=== PATIENT | female | born 1965 | race African-American/Black ===

== ENCOUNTER 2017-12-29 02:31 | Emergency (ER) | payer OTHER ==
[~2017-12-29] VITALS: Ht 160 cm; Wt 81.6 kg
[~2017-12-29 02:31] MED LIST: ASPIRIN81 M4 PO; CLARITIN 24HR10 MG PO; DAILY MULTIPLE1 EACH PO; FLUTICASONE PRO16 GM NASB; JUNEL FE 1/20 21 TAB PO; NORTRIPTYLINE H10 M2 PO; NORVASC5 M1 PO; OMEGA 3 1,0001 EACH PO; OMEPRAZOLE40 M1 PO; REGLAN10 MG PO; SLOW FE160 MG PO; VITAMIN D2000 UNI1 PO; [UNRECOGNIZED DRUG - OTHER] NASB
--- NOTE | 2017-12-29 03:22 | ED CARDIAC/CP/PALPITATIONS ---
See Addendum History of Present Illness General Chief Complaint: Chest Pain Stated Complaint: CHEST PAIN/ LEFT ARM PAIN X 1 DAY Source: patient, old records Exam Limitations: no limitations Vital Signs & Intake/Output Vital Signs & Intake/Output Vital Signs Date Time Temp Pulse Resp B/P B/P Pulse O2 O2 Flow FiO2 Mean Ox Delivery Rate 12/29 0409 70 18 142/75 99 Room Air 12/29 0254 97.6 95 16 158/81 98 Room Air Room Air Allergies Coded Allergies: No Known Allergies (12/29/17) Reconcile Medications Amlodipine Besylate (Norvasc) 5 MG TABLET 1 TAB PO DAILY HEART (Reported) Aspirin (Aspirin*) 81 MG TAB.CHEW 1 TAB PO DAILY HEART HEALTH (Reported) Cholecalciferol (Vitamin D3) (Vitamin D) 2,000 UNIT TABLET 1 TAB PO DAILY VITAMIN SUPPORT (Reported) Fluticasone Propionate 50 MCG/ACTUATION SPRAY.SUSP 2 SPRAY NASB DAILY PRN ALLERGIES (Reported) Multivitamin (Daily Multiple Vitamin) 1 EACH TABLET 1 TAB PO DAILY VITAMIN SUPPORT (Reported) Nortriptyline HCl 10 MG CAPSULE 3 CAP PO QPM PAIN (Reported) [place]-3 Fatty Acids/Fish Oil ([place] 3 1,000 MG Softgel) 300 MG-1,000 MG CAPSULE 1 CAP PO BID SUPPLEMENT (Reported) Omeprazole 40 MG CAPSULE.DR 1 CAP PO DAILY ACID REFLUX (Reported) Core Measure Meds Pre-Hospital aspirin Triage Note: PT TO TRIAGE FOR MID STERNAL CHEST PAIN THAT RADIATES TO HER LEFT ARM. PT HAS SITTING IN A CAR WAS PAIN STARTED, DENIES SOB. DOES NOT APPEAR IN DISTRESS. Triage Nurses Notes Reviewed? yes Onset: Evening Duration: hour(s):, constant, continues in ED Timing: recent history Quality/Severity: mild, moderate, pressure Location: substernal Radiation: shoulders, arms Activities at Onset: rest Prior Chest Pain/Card Workup: no prior chest pain Nitro Today/Relief: no nitro taken today Aspirin Today: 325 mg x 1, provided by ED LMP (ages 10-50): post menopausal : No Patient currently breastfeeds: No HPI: 8 hours prior to admission patient complains of substernal chest pain described as mild to moderate pressure radiating to her left shoulder constant. She woke prior to admission with continued pain as described with radiation further down her left arm. She denies fever chills nausea vomiting diarrhea abdominal pain shortness of breath headache dysuria rash bleeding. Past History Travel History Traveled to [place] past 21 day No Medical History Any Pertinent Medical History? 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 Yes Review of Systems Review of Systems Constitutional: Reports: no symptoms. EENTM: Reports: no symptoms. Respiratory: Reports: no symptoms. Cardiovascular: Reports: see HPI, chest pain. GI: Reports: no symptoms. Genitourinary: Reports: no symptoms. Musculoskeletal: Reports: no symptoms. Skin: Reports: no symptoms. Neurological/Psychological: Reports: no symptoms. Hematologic/Endocrine: Reports: no symptoms. Immunologic/Allergic: Reports: no symptoms. All Other Systems: Reviewed and Negative Physical Exam Physical Exam General Appearance: well developed/nourished, alert, awake, anxious, comfortable , obese Head: atraumatic, normal appearance Eyes: Bilateral: normal appearance, PERRL, EOMI. Ears, Nose, Throat: normal pharynx, normal ENT inspection, hearing grossly normal Neck: normal inspection, supple, full range of motion Respiratory: normal breath sounds, chest non-tender, no respiratory distress, quiet respiration, lungs clear Cardiovascular: regular rate/rhythm, normal peripheral pulses, norml femoral pulses equa Peripheral Pulses: 4+ carotid (R), 4+ carotid (L) Gastrointestinal: normal bowel sounds, soft, non-tender, no organomegaly Back: normal inspection, normal range of motion Extremities: normal inspection, normal capillary refill, normal range of motion, no edema Neurologic/Psych: no motor/sensory deficits, awake, alert, oriented x 3, normal gait, normal mood/affect, 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 Skin: intact, normal color, warm/dry Lymphatic: adenopathy Core Measures ACS in differential dx? Yes CVA/TIA Diagnosis No Sepsis Present: No Sepsis Focused Exam Completed? No Progress Differential Diagnosis: AMI, atrial fibrillation, costochondritis, hyperkalemia, hypovolemia, hyperthyroid, musculoskeletal pain, pneumonia Plan of Care: Orders Procedure Date/time Status TROPONIN LEVEL 12/29 0650 Active TSH REFLEX 12/29 032 Complete TROPONIN LEVEL 12/29 032 Complete MAGNESIUM 12/29 032 Complete COMPREHENSIVE METABOLIC PANEL 12/29 032 Complete CBC WITHOUT DIFFERENTIAL 12/30 319 Complete URINALYSIS 12/29 024 Complete EKG 12/29 0232 Active Current Medications Sig/Wendy Start time Last Medication Dose Stop Time Status Admin Ketorolac 30 MG ONCE ONE 12/29 033 CAN Tromethamine 12/29 033 (Toradol) Laboratory Tests 12/29/17 0353: Anion Gap 13, Estimated GFR > 60, BUN/Creatinine Ratio 20.0, Glucose 106 H, Calcium 9.7, Magnesium 2.1, Total Bilirubin 0.6, AST 22, ALT 31, Alkaline Phosphatase 107, Troponin I < 0.01, Total Protein 7.9, Albumin 4.6, Globulin 3.3 , Albumin/Globulin Ratio 1.4, TSH &T3 &Free T4 Intrp 2.570, CBC w Diff NO MAN DIFF REQ, RBC 4.97, MCV 76.9 L, MCH 25.1 L, MCHC 32.6 L, RDW 14.5, MPV 7.6, Gran % 54.1, Lymphocytes % 36.3, Monocytes % 5.7, Eosinophils % 3.4, Basophils % 0.5, Absolute Granulocytes 5.4, Absolute Lymphocytes 3.6 H, Absolute Monocytes 0.6, Absolute Eosinophils 0.3, Absolute Basophils 0.1 12/29/17 0250: Urine Color YEL, Urine Clarity CLEAR, Urine pH 6.5, Ur Specific [place] 1.010, Urine Protein NEG, Urine Ketones NEG, Urine Nitrite NEG, Urine Bilirubin NEG, Urine Urobilinogen 0.2, Ur Leukocyte Esterase NEG, Ur Microscopic EXAM NOT REQUIRED, Urine Hemoglobin NEG, Urine Glucose NEG Diagnostic Imaging: Viewed by Me: Radiology Read. Discussed w/RAD: Radiology Read. CXR Impression: no acute abnormality, no infiltrates, normal size heart, normal mediastinum Initial ED EKG: normal axis, normal intervals, normal p-waves, normal QRS complex, normal sinus rhythm, no ST T wave changes Prior EKG: unchanged Rhythm Strip: normal sinus rhythm Hand-Off Endorsed To: Aidan Rushing MD Endorsed Time: 0700 Pending: labs Departure Departure Disposition: HOME OR SELF CARE Condition: Stable Clinical Impression Primary Impression: Chest pain syndrome Referrals: Fady STAUFFER,Irais Jarvis (PCP/Family) Departure Forms: Customer Survey General Discharge Information RELEASE- WORK Critical Care Note Critical Care Note Critical Care Time: non-applicable
--- NOTE | 2017-12-29 04:05 | RADIOLOGY REPORT ---
EXAMINATION: XR PORTABLE CHEST CLINICAL INFORMATION: Chest pain COMPARISON: 03/18/2017 TECHNIQUE: Portable frontal view of the chest was obtained. FINDINGS: Lung volumes are symmetric. No focal consolidation is seen. No evidence of pneumothorax, pleural effusion, or pulmonary edema. The cardiomediastinal contour is unremarkable. No acute osseous findings are seen. IMPRESSION: No acute cardiopulmonary findings.
[2017-12-29 04:18] LABS: ABSOLUTE BASOPHIL COUNT 0.1 /CUMM (0.0-0.2); ABSOLUTE EOSINOPHIL COUNT 0.3 /CUMM (0.0-0.7); ABSOLUTE GRANULOCYTE CT 5.4 /CUMM (1.4-6.5); ABSOLUTE LYMPH COUNT 3.6 /CUMM (1.2-3.4); ABSOLUTE MONOCYTE COUNT 0.6 /CUMM (0.10-0.60); BASOPHIL % 0.5 % (0.0-2.0); EOSINOPHIL % 3.4 % (0-5); GRANULOCYTE % 54.1 % (42.2-75.2); HEMATOCRIT 38.2 % (37-47); MEAN CORPUSCULAR HGB 25.1 PG (27.0-31.0); MEAN CORPUSCULAR HGB CONC 32.6 G/DL (33.0-37.0); MEAN CORPUSCULAR VOLUME 76.9 FL (81.0-99.0); MEAN PLATELET VOLUME 7.6 FL (7.4-10.4); PLATELET COUNT 427 /CUMM (130-400); RBC DISTRIBUTION WIDTH 14.5 % (11.5-14.5); RED BLOOD CELL CT 4.97 /CUMM (4.20-5.40)
[2017-12-29] MEDS ORDERED: XIIDRA1 EACH OPH (08:09)
[2017-12-29 09:08] VITALS: BP 130/70
== END 2017-12-29 09:08 ==
LOC: ERH 02:31
PROVIDERS: Emergency Medicine
DX: R07.1 Chest pain on breathing (principal); M79.602 Pain in left arm; K21.9 Gastro-esophageal reflux disease without esophagitis; I10 Essential (primary) hypertension; I48.91 Unspecified atrial fibrillation
CPT/HCPCS: 71045; 81003; 93005; 93010; 96372; J1885